=== PATIENT | male | born 1980 | race African-American/Black ===

== ENCOUNTER → 2020-10-18 | Day surgery (SDC) | payer OTHER ==
[~2020-10-18] MED LIST: BACTRIM DS TAB1 EACH PO; BENTYL10 MG PO; FIORICET1 EACH PO; NORCO 5-325 TA1 EACH PO; PRILOSEC20 MG PO; TRAMADOL HCL50 MG PO; VISTARIL25 MG PO
== END | disposition home or self-care (01) ==
LOC: FAS 07:50
DX: S00.05XA Superficial foreign body of scalp, initial encounter (principal); K21.9 Gastro-esophageal reflux disease without esophagitis; F17.210 Nicotine dependence, cigarettes, uncomplicated; G47.00 Insomnia, unspecified; W34.010A Accidental discharge of airgun, initial encounter
CPT/HCPCS: J2250; J2405; J2704; J3010; J7120

== ENCOUNTER 2020-10-28 05:40 | Emergency (ER) | payer OTHER ==
[~2020-10-28 05:40] MED LIST changes: -BACTRIM DS TAB1 EACH PO; -TRAMADOL HCL50 MG PO; -VISTARIL25 MG PO
[2020-10-28] MEDS ORDERED: BACTRIM DS TAB1 EACH PO (06:19)
[2020-10-28] MEDS ORDERED: TRAMADOL HCL50 MG PO (06:19)
== END 2020-10-28 06:30 | disposition home or self-care (01) ==
LOC: FER 05:40
DX: L76.32 Postprocedural hematoma of skin and subcutaneous tissue following other procedure (principal); F17.200 Nicotine dependence, unspecified, uncomplicated; Z88.0 Allergy status to penicillin; Y83.8 Other surgical procedures as the cause of abnormal reaction of the patient, or of later complication, without mention of misadventure at the time of the procedure

== ENCOUNTER 2021-04-25 01:24 | Emergency (ER) | payer SELFPAY ==
[~2021-04-25 01:24] MED LIST changes: +BACTRIM DS TAB1 EACH PO; +TRAMADOL HCL50 MG PO
[2021-04-25 01:46] LABS: EOSINOPHIL 1.8 % (0-5); HCT 38.5 % (42.0-52.0); HGB 12.7 g/dl (13.2-18.0); MCH 31.8 pg (25.0-31.0); MCV 96.3 fL (78.0-100.0); MONOCYTE 10.7 % (0-12); MPV 10.1 fL (6.0-9.5); NEUTROPHIL 39.3 % (41-80); NRBC 0; PLT 144 K/uL (150-400); RDW 12.7 % (11.5-14.0); WBC 5.1 K/uL (4.0-10.5)
[2021-04-25 01:59] LABS: ALBUMIN 3.9 g/dL (3.4-5.0); BILIRUBIN - TOTAL 0.5 mg/dL (0.2-1.0); BUN/CREAT RATIO (CALC) 10.2 RATIO; CREATININE 0.88 mg/dL (0.67-1.17); GLOBULIN (CALCULATION) 4.3 g/dL; POTASSIUM 3.5 mmol/L (3.5-5.1); TOTAL PROTEIN 8.2 g/dL (6.4-8.2)
[2021-04-25] MEDS ORDERED: VISTARIL25 MG PO (02:47)
== END 2021-04-25 03:00 | disposition home or self-care (01) ==
LOC: FER 01:24
PROVIDERS: Emergency Medicine
DX: R07.89 Other chest pain (principal); R11.2 Nausea with vomiting, unspecified; R00.2 Palpitations; R42 Dizziness and giddiness; R06.02 Shortness of breath; F17.290 Nicotine dependence, other tobacco product, uncomplicated; Z88.0 Allergy status to penicillin
CPT/HCPCS: 36415; 71045; 80053; 84484; 85025; 93005; J1885

== ENCOUNTER 2021-05-27 10:00 | Emergency (ER) | payer SELFPAY ==
[~2021-05-27 10:00] MED LIST changes: +VISTARIL25 MG PO
== END 2021-05-27 10:20 | disposition left against medical advice (07) ==
LOC: FER 10:00
DX: Z53.1 Procedure and treatment not carried out because of patient's decision for reasons of belief and group pressure (principal)
CPT/HCPCS: 93005

== ENCOUNTER 2021-07-07 12:53 | Emergency (ER) | payer SELFPAY ==
[2021-07-07] MEDS ORDERED: BENTYL10 MG PO (13:46)
== END 2021-07-07 14:00 | disposition home or self-care (01) ==
LOC: FER 12:53
DX: R19.7 Diarrhea, unspecified (principal)
CPT/HCPCS: 99283

== ENCOUNTER 2021-09-07 17:19 | Emergency (ER) | payer SELFPAY ==
[2021-09-07 20:18] LABS: BASOPHIL 0.8 % (0-2); HCT 39.6 % (42.0-52.0); HGB 12.7 g/dl (13.2-18.0); LYMPHOCYTE 59.4 % (15-48); MCH 29.5 pg (25.0-31.0); MCHC 32.1 g/dL (32.0-36.0); MCV 92.1 fL (78.0-100.0); MONOCYTE 6.5 % (0-12); MPV 10.1 fL (6.0-9.5); NRBC 0; PLT 266 K/uL (150-400); RDW 12.9 % (11.5-14.0); WBC 6.5 K/uL (4.0-10.5)
[2021-09-07 20:29] LABS: ALBUMIN 3.3 g/dL (3.4-5.0); BILIRUBIN - TOTAL 0.2 mg/dL (0.2-1.0); GLOBULIN (CALCULATION) 3.8 g/dL; POTASSIUM 3.5 mmol/L (3.5-5.1); TOTAL PROTEIN 7.1 g/dL (6.4-8.2)
[2021-09-07 20:33] LABS: BILIRUBIN NEGATIVE (NEGATIVE); BLOOD NEGATIVE Ery/uL (NEGATIVE); CLARITY CLEAR (CLEAR); COLOR YELLOW (YELLOW); GLUCOSE (U) NORMAL (NORMAL); LEUKOCYTES NEGATIVE Leu/uL (NEGATIVE); NITRITE NEGATIVE (NEGATIVE); PROTEIN NEGATIVE (NEGATIVE); SPECIFIC GRAVITY 1.025 (1.001-1.030); UROBILINOGEN 0.2 mg/dL (0.2-1.0)
[2021-09-07 20:34] LABS: AMPHETAMINES NEGATIVE (NEGATIVE); BARBITURATES NEGATIVE (NEGATIVE); ECSTASY (MDMA) NEGATIVE (NEGATIVE); MARIJUANA (THC) NEGATIVE (NEGATIVE); METHADONE NEGATIVE (NEGATIVE); OPIATES NEGATIVE (NEGATIVE); OXYCODONE NEGATIVE (NEGATIVE)
[2021-09-07] MEDS ORDERED: BENTYL10 MG PO (22:02)
== END 2021-09-07 22:40 | disposition home or self-care (01) ==
LOC: FER 17:19
PROVIDERS: Nurse Practitioner Family
DX: R10.84 Generalized abdominal pain (principal); R11.0 Nausea; F17.210 Nicotine dependence, cigarettes, uncomplicated; Z88.0 Allergy status to penicillin
CPT/HCPCS: 36415; 80053; 80305; 81003; 85025; J1885; J2405; J7030; Q9967

== ENCOUNTER 2021-10-11 04:58 | Emergency (ER) | payer SELFPAY ==
[2021-10-11 05:24] LABS: BASOPHIL 0.3 % (0-2); EOSINOPHIL 1.2 % (0-5); HCT 42.8 % (42.0-52.0); LYMPHOCYTE 15.1 % (15-48); MCH 29.6 pg (25.0-31.0); MCHC 32.7 g/dL (32.0-36.0); MCV 90.5 fL (78.0-100.0); MONOCYTE 3.6 % (0-12); MPV 9.4 fL (6.0-9.5); NEUTROPHIL 79.5 % (41-80); NRBC 0; PLT 237 K/uL (150-400); RBC 4.73 M/uL (4.70-6.00); RDW 13.2 % (11.5-14.0); WBC 6.7 K/uL (4.0-10.5)
[2021-10-11 05:46] LABS: BILIRUBIN - TOTAL 0.6 mg/dL (0.2-1.0); BUN/CREAT RATIO (CALC) 16.4 RATIO; CREATININE 1.16 mg/dL (0.67-1.17); POTASSIUM 3.7 mmol/L (3.5-5.1)
[2021-10-11] MEDS ORDERED: ZOFRAN4 M1 PO (06:23)
== END 2021-10-11 06:38 | disposition home or self-care (01) ==
LOC: FER 04:58
PROVIDERS: Emergency Medicine
DX: R11.2 Nausea with vomiting, unspecified (principal); R19.7 Diarrhea, unspecified; F17.200 Nicotine dependence, unspecified, uncomplicated; Z88.0 Allergy status to penicillin; Z20.822 Contact with and (suspected) exposure to COVID-19
CPT/HCPCS: 36415; 80053; 83690; 85025; J2405; J7030; U0002

== ENCOUNTER 2021-11-13 05:13 | Emergency (ER) | payer SELFPAY ==
[~2021-11-13 05:13] MED LIST changes: +ZOFRAN4 M1 PO
[2021-11-13 06:24] LABS: BASOPHIL 0.7 % (0-2); HCT 41.6 % (42.0-52.0); HGB 13.6 g/dl (13.2-18.0); LYMPHOCYTE 57.9 % (15-48); MCH 30.3 pg (25.0-31.0); MCHC 32.7 g/dL (32.0-36.0); MCV 92.7 fL (78.0-100.0); MONOCYTE 5.6 % (0-12); MPV 9.6 fL (6.0-9.5); NEUTROPHIL 33.7 % (41-80); NRBC 0; PLT 230 K/uL (150-400); RBC 4.49 M/uL (4.70-6.00); RDW 13.2 % (11.5-14.0); WBC 6.9 K/uL (4.0-10.5)
[2021-11-13 06:50] LABS: CORONAVIRUS 2019 SARS-COV-2 NEGATIVE (NEGATIVE); INFLUENZA A NAA NEGATIVE (NEGATIVE)
[2021-11-13 06:53] LABS: ALBUMIN 3.8 g/dL (3.4-5.0); BILIRUBIN - TOTAL 0.3 mg/dL (0.2-1.0); BUN/CREAT RATIO (CALC) 11.5 RATIO; CREATININE 0.96 mg/dL (0.67-1.17); GLOBULIN (CALCULATION) 4.1 g/dL; POTASSIUM 3.9 mmol/L (3.5-5.1); TOTAL PROTEIN 7.9 g/dL (6.4-8.2)
[2021-11-13 08:09] LABS: BILIRUBIN NEGATIVE (NEGATIVE); BLOOD NEGATIVE Ery/uL (NEGATIVE); CLARITY CLEAR (CLEAR); COLOR YELLOW (YELLOW); GLUCOSE (U) NORMAL (NORMAL); LEUKOCYTES NEGATIVE Leu/uL (NEGATIVE); NITRITE NEGATIVE (NEGATIVE); PROTEIN NEGATIVE (NEGATIVE); SPECIFIC GRAVITY 1.025 (1.001-1.030); UROBILINOGEN 0.2 mg/dL (0.2-1.0)
[2021-11-13] MEDS ORDERED: ONDANSETRON ODT4 MG PO (10:31)
[2021-11-13] MEDS ORDERED: LOPERAMIDE2 MG PO (10:31)
== END 2021-11-13 10:42 | disposition home or self-care (01) ==
LOC: FER 05:13
PROVIDERS: Emergency Medicine Emergency Medical Services
DX: A08.4 Viral intestinal infection, unspecified (principal); F17.200 Nicotine dependence, unspecified, uncomplicated; Z20.822 Contact with and (suspected) exposure to COVID-19; Z88.0 Allergy status to penicillin; Z88.6 Allergy status to analgesic agent
CPT/HCPCS: 36415; 74018; 80053; 81003; 85025; J2270; J2405; J7030; Q9967; U0002

== ENCOUNTER 2021-12-05 21:51 | Emergency (ER) | payer SELFPAY ==
[~2021-12-05 21:51] MED LIST changes: +LOPERAMIDE2 MG PO; +ONDANSETRON ODT4 MG PO
[2021-12-05 22:26] LABS: EOSINOPHIL 1.7 % (0-5); LYMPHOCYTE 62.2 % (15-48); MCH 30.3 pg (25.0-31.0); MCHC 31.7 g/dL (32.0-36.0); MCV 95.6 fL (78.0-100.0); MONOCYTE 6.9 % (0-12); NRBC 0; PLT 250 K/uL (150-400); RBC 4.29 M/uL (4.70-6.00); RDW 13.2 % (11.5-14.0); WBC 5.2 K/uL (4.0-10.5)
[2021-12-05 22:41] LABS: BUN/CREAT RATIO (CALC) 9.1 RATIO; CREATININE 0.99 mg/dL (0.67-1.17); POTASSIUM 3.9 mmol/L (3.5-5.1)
[2021-12-05 22:59] LABS: CORONAVIRUS 2019 SARS-COV-2 NEGATIVE (NEGATIVE); INFLUENZA A NAA NEGATIVE (NEGATIVE)
== END 2021-12-05 23:40 | disposition home or self-care (01) ==
LOC: FER 21:51
PROVIDERS: Nurse Practitioner Family
DX: R11.2 Nausea with vomiting, unspecified (principal); R19.7 Diarrhea, unspecified; R10.9 Unspecified abdominal pain; Z20.822 Contact with and (suspected) exposure to COVID-19; Z88.0 Allergy status to penicillin
CPT/HCPCS: 36415; 74022; 80048; 85025; U0002

== ENCOUNTER 2022-02-10 17:42 | Emergency (ER) | payer SELFPAY ==
[2022-02-10 19:38] LABS: BASOPHIL 0.8 % (0-2); EOSINOPHIL 1.4 % (0-5); HGB 13.4 g/dl (13.2-18.0); LYMPHOCYTE 53.6 % (15-48); MCH 30.5 pg (25.0-31.0); MCHC 31.9 g/dL (32.0-36.0); MCV 95.5 fL (78.0-100.0); MONOCYTE 6.9 % (0-12); MPV 9.6 fL (6.0-9.5); NRBC 0; PLT 282 K/uL (150-400); RDW 13.2 % (11.5-14.0); WBC 6.4 K/uL (4.0-10.5)
[2022-02-10 20:02] LABS: ALBUMIN 3.8 g/dL (3.4-5.0); BILIRUBIN - TOTAL 0.4 mg/dL (0.2-1.0); BUN/CREAT RATIO (CALC) 14.7 RATIO; CREATININE 1.16 mg/dL (0.67-1.17); GLOBULIN (CALCULATION) 4.2 g/dL; POTASSIUM 4.1 mmol/L (3.5-5.1)
[2022-02-10 21:05] LABS: BILIRUBIN NEGATIVE (NEGATIVE); BLOOD NEGATIVE Ery/uL (NEGATIVE); CLARITY CLEAR (CLEAR); COLOR YELLOW (YELLOW); GLUCOSE (U) NORMAL (NORMAL); LEUKOCYTES NEGATIVE Leu/uL (NEGATIVE); NITRITE NEGATIVE (NEGATIVE); PROTEIN NEGATIVE (NEGATIVE); SPECIFIC GRAVITY 1.025 (1.001-1.030); UROBILINOGEN 0.2 mg/dL (0.2-1.0)
== END 2022-02-10 21:20 | disposition home or self-care (01) ==
LOC: FER 17:42
PROVIDERS: Physician Assistant
DX: R10.12 Left upper quadrant pain (principal); R10.32 Left lower quadrant pain; G89.29 Other chronic pain; I10 Essential (primary) hypertension; Z88.0 Allergy status to penicillin
CPT/HCPCS: 36415; 80053; 81003; 83690; 85025; 99284